=== PATIENT | female | born 1970 | race Caucasian/White ===

== ENCOUNTER 2016-11-07 09:23 | Outpatient (CLI) | payer OTHER ==
[2015-04-23 20:00] VITALS: BP 131/99
[2016-11-07 10:54] LABS: eGFR (African) > 60; eGFR (Non-African) > 60
== END 2016-11-07 09:24 ==
LOC: LAB 09:23
PROVIDERS: ATTEND Physician Assistant
DX: Z00.00 Encounter for general adult medical examination without abnormal findings (principal); R53.82 Chronic fatigue, unspecified; R63.5 Abnormal weight gain; E78.2 Mixed hyperlipidemia; R73.9 Hyperglycemia, unspecified
CPT/HCPCS: 36415; 80053; 80061; 83036; 84443

== ENCOUNTER 2017-03-22 08:16 | Outpatient (CLI) | payer OTHER ==
[2015-04-23 20:00] VITALS: BP 131/99
[2017-03-22 09:09] LABS: eGFR (African) > 60; eGFR (Non-African) > 60
== END 2017-03-22 08:17 ==
LOC: LAB 08:16
PROVIDERS: ATTEND Physician Assistant
DX: E78.2 Mixed hyperlipidemia (principal); Z79.899 Other long term (current) drug therapy
CPT/HCPCS: 36415; 80053; 80061